=== PATIENT | female | born 1995 | race Caucasian/White ===

== ENCOUNTER 2017-07-10 21:44 | Emergency (ER) | payer SELFPAY ==
[2017-07-10] MEDS ORDERED: NS 0.9% 1000 ML* 1,000 ML IV SCH (22:00)
[2017-07-10 22:17] LABS: Hematocrit 39 % (35-47); Hemoglobin 13.2 g/dl (12.0-16.0); Mean Corpuscular HGB Conc 34 g/dl (31-36); Mean Corpuscular Hemoglobin 30 pg (27-31); Mean Corpuscular Volume 90 fL (80-97); Mean Platelet Volume 9 um3 (7.4-10.4); Red Blood Count 4.37 10^6/ul (4.0-5.4); Red Cell Distribution Width 13 % (10.5-15); White Blood Count 6.8 10^3/ul (3.5-10.8)
[2017-07-10 22:31] LABS: ALT 8 U/L (7-52); AST 16 U/L (13-39); Albumin 4.3 g/dL (3.2-5.2); Alkaline Phosphatase 41 U/L (34-104); BUN/Creatinine Ratio 11.1 (8-20); Blood Urea Nitrogen 9 mg/dL (6-24); CO2 Carbon Dioxide 23 mmol/L (22-32); Calcium 8.6 mg/dL (8.6-10.3); Chloride 108 mmol/L (101-111); EGFR African American 114.8 (>60); EGFR Non-African American 89.3 (>60); Globulin 2.4 g/dL (2-4); Glucose 91 mg/dL (70-100); Sodium 138 mmol/L (133-145); Total Protein 6.7 g/dL (6.4-8.9)
[2017-07-10 22:32] LABS: Anion Gap 7 mmol/L (2-11); Potassium 2.4 mmol/L (3.5-5.0)
[2017-07-10 22:44] LABS: Acetaminophen < 15 mcg/mL; Alcohol 277 mg/dL (<10); Salicylate < 2.50 mg/dL (<30)
[2017-07-10 22:59] LABS: TSH (Thyroid Stimulating Horm) 0.82 mcIU/mL (0.34-5.60)
[2017-07-10] MEDS ORDERED: NS 0.9% w/ 20 Meq KCL 1000 ML* 1,000 ML IV SCH (23:00)
--- NOTE | 2017-07-11 00:45 | ED ---
Lori Milan Emily, scribed for Jesus Saini MD on 07/10/17 at 2158 . Substance Abuse/Use - HPI Summary HPI Summary: Unable to obtain full HPI due to level 5 caveat- etoh intoxication. This patient is a 21 year old F BIBA to [facility] with a chief complaint of ETOH intoxication. Per EMS, pt vomited a small amount, but was unresponsive. Per EMS , no known trauma. - History Of Current Complaint Chief Complaint: EDSubstanceAbuse Stated Complaint: ETOH Time Seen by Provider: 07/10/17 21:46 Hx Obtained From: EMS Hx From Patient Unobtainable Due To: Other - ETOH INTOXICATION PMH/Surg Hx/FS Hx/Imm Hx Previously Healthy: No - UNABLE TO OBTAIN Hx DUE TO LEVEL 5 CAVEAT-ETOH INTOXICATION Review of Systems All Other Systems Reviewed And Are Negative: No - Comments Additional Review of Systems Comments: UNABLE TO OBTAIN ROS DUE TO LEVEL 5 CAVEAT - ETOH INTOXICATION Physical Exam - Summary Physical Exam Summary: UNABLE TO OBTAIN FULL PE DUE TO LEVEL 5 CAVEAT - ETOH INTOXICATION General: stuporous, responds to pain, no signs of trauma Skin: warm, color reflects adequate perfusion, dry, abrasion on top of R foot Head: normal Eyes: pupils 2 mm, nonreactive ENT: normal Neck: supple, nontender Respiratory: CTA, breath sounds present Cardiovascular: RRR Abdomen: soft, nontender Bowel: present Musculoskeletal: normal, strength/ROM intact Triage Information Reviewed: Yes Vital Signs On Initial Exam: Initial Vitals Temp Pulse Resp BP Pulse Ox 98 F 65 16 103/67 100 07/10/17 22:00 07/10/17 22:00 07/10/17 22:00 07/10/17 22:00 07/10/17 22:00 Vital Signs Reviewed: Yes Diagnostics - Vital Signs Vital Signs Temp Pulse Resp BP Pulse Ox 07/11/17 00:01 75 16 98/66 100 07/11/17 00:00 87 21 100 07/10/17 23:30 66 18 91/54 100 07/10/17 23:00 66 19 91/57 100 07/10/17 22:30 65 20 99/54 100 07/10/17 22:05 78 19 103/67 98 07/10/17 22:00 98 F 65 16 103/67 100 - Laboratory Lab Results: Lab Results 07/10/17 07/10/17 Range/Units 22:10 22:10 WBC 6.8 (3.5-10.8) 10^3/ul RBC 4.37 (4.0-5.4) 10^6/ul Hgb 13.2 (12.0-16.0) g/dl Hct 39 (35-47) % MCV 90 (80-97) fL MCH 30 (27-31) pg MCHC 34 (31-36) g/dl RDW 13 (10.5-15) % Plt Count 195 (150-450) 10^3/ul MPV 9 (7.4-10.4) um3 Neut % (Auto) 53.7 (38-83) % Lymph % (Auto) 36.7 (25-47) % [place] % (Auto) 7.4 (1-9) % Eos % (Auto) 1.2 (0-6) % Baso % (Auto) 1.0 (0-2) % Absolute Neuts (auto) 3.6 (1.5-7.7) 10^3/ul Absolute Lymphs (auto) 2.5 (1.0-4.8) 10^3/ul Absolute Monos (auto) 0.5 (0-0.8) 10^3/ul Absolute Eos (auto) 0.1 (0-0.6) 10^3/ul Absolute Basos (auto) 0.1 (0-0.2) 10^3/ul Absolute Nucleated RBC 0.01 10^3/ul Nucleated RBC % 0.1 Sodium 138 (133-145) mmol/L Potassium 2.4 L* (3.5-5.0) mmol/L Chloride 108 (101-111) mmol/L Carbon Dioxide 23 (22-32) mmol/L Anion Gap 7 (2-11) mmol/L BUN 9 (6-24) mg/dL Creatinine 0.81 (0.51-0.95) mg/dL Est GFR ( Amer) 114.8 (>60) Est GFR (Non-Af Amer) 89.3 (>60) BUN/Creatinine Ratio 11.1 (8-20) Glucose 91 (70-100) mg/dL Calcium 8.6 (8.6-10.3) mg/dL Total Bilirubin 1.10 H (0.2-1.0) mg/dL AST 16 (13-39) U/L ALT 8 (7-52) U/L Alkaline Phosphatase 41 (34-104) U/L Total Protein 6.7 (6.4-8.9) g/dL Albumin 4.3 (3.2-5.2) g/dL Globulin 2.4 (2-4) g/dL Albumin/Globulin Ratio 1.8 (1-3) TSH 0.82 (0.34-5.60) mcIU/mL Beta HCG, Quant < 0.60 mIU/mL Salicylates < 2.50 (<30) mg/dL Acetaminophen < 15 mcg/mL Serum Alcohol 277 H (<10) mg/dL Result Diagrams: 07/10/17 22:10 07/10/17 22:10 Lab Statement: Any lab studies that have been ordered have been reviewed, and results considered in the medical decision making process. Course/Dx - Diagnoses Provider Diagnoses: Acute alcohol intoxication, Hypokalemia Discharge - Discharge Plan Condition: Stable Disposition: HOME Patient Education Materials: Alcohol Intoxication (ED), Hypokalemia (ED) Referrals: [facility] [Provider Group] Additional Instructions: FOLLOW UP WITH YOUR DOCTOR. RETURN TO THE EMERGENCY DEPARTMENT FOR ANY WORSENING OF YOUR CONDITION OR QUESTIONS OR CONCERNS. The documentation as recorded by the Lori jordan Emily accurately reflects the service I personally performed and the decisions made by me, Jesus Saini MD.
[2017-07-11 06:44] VITALS: BP 110/58
== END 2017-07-11 06:44 | disposition home or self-care (01) ==
LOC: ED 21:44
DX: F10.129 Alcohol abuse with intoxication, unspecified (principal); E87.6 Hypokalemia
CPT/HCPCS: 36415; 80053; 80320; 80329; 84443; 84702; 85025; 96360; 99284; G0480